=== PATIENT | female | born 1995 | race Caucasian/White ===

== ENCOUNTER 2018-01-19 21:29 | Emergency (ER) | payer OTHER ==
[2018-01-19 21:48] VITALS: BP 118/59; PULSE 65; TEMP 97.8; BMI 24.1
[2018-01-19] MEDS ORDERED: TETRACAINE 0.5% OPHTH SOLN 2 ML BOTTLE ONE (21:58)
[2018-01-19] MEDS ORDERED: FLUORESCEIN NA 1 EA STRIP ONE (21:58)
--- NOTE | 2018-01-19 22:02 | PDOC ---
History of Present Illness - General History Source: Patient Exam Limitations: No Limitations - History of Present Illness Initial Comments: 01/19/18 22:03 The patient is a 22 year old female presenting with her friend, who presents to the emergency department with right eye pain onset today after taking off her make up. She describes her pain as a sharp sensation, rating it a 7/10. She reports that her pain is worsened when she moves her eye. She denies any blurry or double vision. She denies sensitivity to light. She notes that she was having some eye pain while she was doing her homework and decided to take off her make up with baby wipes. She noticed that the pain worsened after taking off her make up and decided to wash out her eye. The patient washed out her eye but notes that she still has pain. She denies wearing contacts or prescription eyeglasses. The patient denies any other kind of symptoms or injuries. PAST MEDICAL HISTORY: no significant history PAST SURGICAL HISTORY: no significant history FAMILY HISTORY: no pertinent history SOCIAL HISTORY: Pt lives with family and is employed. MEDICATIONS: reviewed ALLERGIES: As per nursing notes General: No fevers or chills, no weakness, no weight loss HEENT: (+) Right eye pain. No change in vision. No sore throat,. No ear pain CardioVascular: No chest pain or shortness of breath Respiratory:No cough, or wheezing. Gastrointestinal: no nausea, vomiting, diarrhea or constipation, No rectal bleeding Genitourinary: No dysuria, hematuria, or frequency Musculoskeletal: No joint or muscle pain or swelling Neurologic: No headache, vertigo, dizziness or loss of consciousness Psychiatric: nor depression Skin: No rashes or easy bruising Endocrine: no increased thirst or abnormal weight change Allergic: no skin or latex allergy All other systems reviewed and normal GENERAL: The patient is awake, alert, and fully oriented, in no acute distress. HEAD: Normal with no signs of trauma. EYES: Pupils eual, round and reactive to light, extraocular movements intact. No foreign body visible. No increase of uptake in dye of flourescent staining. Mild injection of conjuctiva. EXTREMITIES: Normal range of motion, no edema. NEUROLOGICAL: Normal speech, normal gait. PSYCH: Normal mood, normal affect. SKIN: Warm, Dry, normal turgor, no rashes or lesions noted. <Landry Katz - Last Filed: 01/19/18 22:03> - General History Source: Patient Exam Limitations: No Limitations - History of Present Illness Initial Comments: A portion of this note was documented by scribe services under my direction. I have reviewed the details of the note, within reason, and agree with the documentation. The case summary and management plan written by me. Assessment and plan: This is a 22-year-old female who comes in complaining of a foreign body sensation in her right eye. On exam patient did not have any foreign body, there was no corneal abrasion unforeseen stating that she did have some mild injection of her conjunctiva. Patient was started on antibiotics and discharged and told to follow-up with her fueler. 01/19/18 22:42 <Fernie Hickey I - Last Filed: 01/19/18 22:52> - General Chief Complaint: Pain, Acute Stated Complaint: RIGHT EYE PAIN AFTER REMOVING MAKE UP Time Seen by Provider: 01/19/18 21:34 Past History <Landry Katz - Last Filed: 01/19/18 22:03> - Past Medical History COPD: No Other medical history: DENIES - Immunization History Td Vaccination: Yes - Suicide/Smoking/Psychosocial Hx Smoking History: Never smoked Have you smoked in the past 12 months: No Information on smoking cessation initiated: No Hx Alcohol Use: No Drug/Substance Use Hx: No Substance Use Type: None <Fernie Hickey I - Last Filed: 01/19/18 22:52> - Past Medical History Allergies/Adverse Reactions: Allergies Allergy/AdvReac Type Severity Reaction Status Date / Time No Known Allergies Allergy Verified 01/19/18 21:31 Home Medications: Ambulatory Orders NK [No Known Home Medication] 01/19/18 *Physical Exam - Vital Signs Last Vital Signs Temp Pulse Resp BP Pulse Ox 97.8 F 65 18 118/59 99 01/19/18 21:32 01/19/18 21:32 01/19/18 21:32 01/19/18 21:32 01/19/18 21:32 <Landry Katz - Last Filed: 01/19/18 22:03> - Vital Signs Last Vital Signs Temp Pulse Resp BP Pulse Ox 97.8 F 65 18 118/59 99 01/19/18 21:32 01/19/18 21:32 01/19/18 21:32 01/19/18 21:32 01/19/18 21:32 <Fernie Hickey I - Last Filed: 01/19/18 22:52> *DC/Admit/Observation/Transfer - Attestations Scribe Attestion: 01/19/18 22:03 Documentation prepared by Landry Katz, acting as biomedical field service engineer for Fernie Hickey MD <Landry Katz - Last Filed: 01/19/18 22:03> <Fernie Hickey I - Last Filed: 01/19/18 22:52> Diagnosis at time of Disposition: Conjunctivitis, right eye Qualifiers: Conjunctivitis type: acute Acute conjunctivitis type: unspecified Qualified Code(s): H10.31 - Unspecified acute conjunctivitis, right eye - Discharge Dispostion Disposition: HOME Condition at time of disposition: Stable - Patient Instructions Additional Instructions: Place one drop of the tobramycin solution in each eye 4 times a day for the next 5 days. Tylenol as needed for pain. Return to the emergency department immediately with ANY new, persistent or worsening symptoms. Continue any medications as previously prescribed by your physician. You should follow up with your primary doctor as soon as possible regarding today's emergency department visit. . Please make sure your doctor reviews the results of your emergency evaluation. Thank you for coming to the Emergency Department today for your care. It was a pleasure to see you today. Please note that your evaluation is INCOMPLETE until you follow-up with your doctor.
[2018-01-19] MEDS ORDERED: TOBRAMYCIN 0.3% OPHTH SOLN 5 ML BOTTLE OU ONE (22:07)
[2018-01-19] MEDS ORDERED: TOBRAMYCIN 0.3% OPHTH SOLN 5 ML BOTTLE ONE (22:16)
== END 2018-01-19 22:19 | disposition home or self-care (01) ==
LOC: FER 21:29
DX: H57.11 Ocular pain, right eye (principal)
CPT/HCPCS: 99281-25